=== PATIENT | male | born 1965 | race Caucasian/White ===

== ENCOUNTER 2020-11-13 11:58 | Outpatient (CLI) | payer OTHER, MEDICARE, SELFPAY ==
--- NOTE | 2020-11-13 12:13 | XR_ITS ---
WS: [id number] Thoracic spine, 3 views, 11/13/2020 Clinical Data: pain and injury Comparison: None. Findings: There are compression fractures of the T8 and T12 vertebral bodies with loss of approximately 50% of central vertebral body height. The age of these fractures is indeterminate. There is diffuse osteopor osis of all the thoracic vertebral bodies. There is a slight dextroscoliosis. Minimal anterior osteoa rthritic spurring is seen at T11-T12. The paravertebral regions are normal. XR/XR thoracic spine 3V* [id number] Impression: 1. Compression fractures of indeterminate age of T8 and T12. 2. Osteoporosis of all the thoracic vertebral bodies. 3. Dextroscoliosis of the lower thoracic spine.
== END 2020-11-13 11:59 | disposition home or self-care (01) ==
PROVIDERS: Visit Provider Nurse Practitioner
DX: S22.069A Unspecified fracture of T7-T8 vertebra, initial encounter for closed fracture (principal); S22.089A Unspecified fracture of T11-T12 vertebra, initial encounter for closed fracture; X58.XXXA Exposure to other specified factors, initial encounter; M81.0 Age-related osteoporosis without current pathological fracture; M41.84 Other forms of scoliosis, thoracic region
CPT/HCPCS: 72072

== ENCOUNTER 2025-04-22 09:39 | Oncology outpatient (recurring) (ONCR) | payer MEDICARE, MEDICAID, SELFPAY ==
--- NOTE | 2025-04-05 13:30 | PETR_ITS ---
PROCEDURE INFORMATION: Exam: PET/CT Skull Base to Mid-thigh Exam date and time: 04/05/2025 2:35 PM Age: 59 years old Clinical indication: Condition or disease; Primary cancer: Primary malignant neoplasm of overlapping sites of pancreas LABS AND CLINICAL REPORTS: Glucose: 93 mg/dl Treatment strategy for malignancy (PET staging): Initial Staging (PI) TECHNIQUE: Imaging protocol: Following at least four-hour fasting and following the injection of radiopharmaceutical, low dose CT images were obtained. Then, PET images were obtained. Attenuation corrected images were constructed using the CT scan. Fused images of PET and CT were reviewed. The standardized uptake values (SUV) reported below are maximum values within a region of interest, expressed in gm/ml. Exam includes orbital meatal line to mid-thigh. SUV normalization method: BodyWeight Radiopharmaceutical: 10.57 mCi F-18 FDG (Fluorodeoxyglucose), IV. Time of imaging post radiopharmaceutical administration: 50 minutes Injection site: left ac COMPARISON: CR XR thoracic spine 3V* [id number] 11/13/2020 12:16 PM FINDINGS: Tubes, catheters and devices: Right chest port terminates in the right atrium. Brain: Visualized brain has normal physiologic uptake. Pharynx: No abnormal uptake. Larynx: No abnormal uptake. Lungs, pleura and trachea: No abnormal uptake. Mild dependent atelectasis. No consolidation or mass. Heart: Normal physiologic uptake. Coronary arteries: Mild coronary artery calcification. Mediastinal space: No abnormal uptake. Liver: No abnormal uptake. Gallbladder and biliary ducts: Biliary stent in place with pneumobilia indicating patency. No biliary ductal dilatation. Low-level uptake at the distal hepatic aspect may be inflammatory related to recent placement. Pancreas: Focal uptake at the head shows SUV max 4.8 on axial image 157 without discretely measurable mass on noncontrast CT images. Atrophy of the neck, body and tail with ductal dilatation. Spleen: No abnormal uptake. 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 Adrenal glands: No abnormal uptake. Kidneys and ureters: Normal physiologic uptake. Stomach and bowel: FDG uptake along the thickened underdistended distal ascending colon as well as throughout the transverse colon. Urinary bladder: Underdistended urinary bladder with circumferential wall thickening. Reproductive: Prostatomegaly. No abnormal uptake. Vasculature: No abnormal uptake. Mild systemic atherosclerotic calcification without aortic aneurysm. Lymph nodes: Low-level FDG uptake at nonenlarged right level 2 cervical node measuring 5 mm in the short axis on axial image 31 with SUV max 2.9. Subcarinal node measures 1.3 cm in the short axis and shows SUV max 3.3. Low-level bilateral hilar uptake without discretely measurable node, SUV max 3.0 on the left on axial image 100 and SUV max 2.7 on the right on axial image 102. Mildly prominent FDG avid proximal peripancreatic/periportal lymphadenopathy with portacaval node measuring 1.3 cm in the short axis on axial image 150 with SUV max 3.1. Skeleton: No suspicious abnormal uptake in the visualized axial and appendicular skeleton. Chronic appearing [id number] anterior wedge morphology of the T8 and T12 vertebral bodies. Bilateral frontal bone and left periorbital postsurgical fixation hardware. Degenerative change along the spine. Thin FDG uptake adjacent to the left greater trochanter is likely inflammatory. Soft tissues: No abnormal uptake in the visualized head, neck, chest, abdomen, pelvis, and extremities. METRICS: Mediastinal blood pool: SUV mean 1.5 Liver uptake: SUV mean 1.8 PET/PET skull to thigh INIT [id number] IMPRESSION: 1. Focal FDG uptake at the pancreatic head likely corresponds to reported malignancy. Distal pancreatic atrophy and ductal dilatation. 2. FDG avid mildly prominent proximal peripancreatic/periportal lymphadenopathy concerning for metastatic disease. 3. Biliary stent in place with pneumobilia indicating patency. Low-level uptake at the distal hepatic aspect may be inflammatory related to recent placement. 4. Low-level FDG uptake at nonenlarged right cervical lymph node, subcarinal node and bilateral sonam is nonspecific with benign reactive or granulomatous etiology favored, metastasis thought less likely but difficult to entirely exclude. 5. FDG uptake along the distal ascending colon and throughout the transverse colon with underlying thickening. Although this could be physiologic in the setting of underdistention, possibility of colitis is raised. 6. Urinary bladder wall thickening may be on the basis of underdistention, possibly cystitis or chronic outlet obstruction in the setting of prostatomegaly. 7. Additional chronic and incidental findings as above.
[2025-04-15 07:46] LABS: Hematocrit 38.2 % (37-53); Hemoglobin 13.00 g/dL (11.27-16.99); Mean Corpuscular HGB Conc 34.0 g/dL (30-55); Mean Corpuscular Hemoglobin 34.1 pg (27-33); Mean Corpuscular Volume 100.3 fl (82-101); Nucleated Red Blood Cells % 0 %; Platelet Count 246 10^3/cmm (157-399); Red Blood Count 3.81 10^6/uL (3.85-5.65); White Blood Count 10.41 10^3/uL (3.29-11.43)
[2025-04-15 08:04] LABS: Alanine Aminotransferase 42 U/L (0-41); Albumin Level 3.9 g/dL (3.5-5.2); Alkaline Phosphatase 166 U/L (40-130); Anion Gap 16.3 (5-19); Aspartate Amino Transferase 43 U/L (0-40); Blood Urea Nitrogen 11 mg/dL (8-23); Calcium 9.0 mg/dL (8.5-10.5); Carbon Dioxide 25 mmol/L (22-29); Chloride 101 mmol/L (98-107); Creatinine Clr Calc Pharmacy 97.5424; Globulin 3.5 g/dL (1.3-4.6); Glucose 132 mg/dL (65-115); Osmolality Calculated 287 mOsm/kg (285-295); Potassium 4.3 mmol/L (3.5-5.1); Sodium 138 mmol/L (136-145); Total Protein 7.4 g/dL (6.6-8.7)
[2025-04-15] MEDS: dexamethasone 4 mg/mL INJ 5 mL 12 MG IVP (10:05)
[2025-04-15] MEDS: atropine 1 mg/mL SDV 1 mL 0.4 MG IV (13:06)
[2025-04-15] MEDS: LEUCOVORIN IV (13:19)
[2025-04-15] MEDS: IRINOTECAN IV (13:19)
[2025-04-15] MEDS: DEXTROSE 5% IV ×2 (13:19)
[2025-04-15] MEDS: fluorouraciL 50 mg/ml MDV 100 mL 650 MG IVP (15:17)
[2025-04-15] MEDS: fluorouraciL 4,050 MG, elastomeric pump 1 PUMP in sodium chloride 0.9% (100 ml) 11 ML IV (15:25)
[2025-04-15 15:38] VITALS: BP 102/67; PULSE 71; RESP 17; TEMP 36.3; O2SAT 91
[2025-04-22 09:53] LABS: Hematocrit 35.5 % (37-53); Hemoglobin 12.10 g/dL (11.27-16.99); Mean Corpuscular HGB Conc 34.1 g/dL (30-55); Mean Corpuscular Hemoglobin 33.2 pg (27-33); Mean Corpuscular Volume 97.5 fl (82-101); Nucleated Red Blood Cells % 0 %; Platelet Count 181 10^3/cmm (157-399); Red Blood Count 3.64 10^6/uL (3.85-5.65); White Blood Count 7.79 10^3/uL (3.29-11.43)
[2025-04-22 10:15] LABS: Albumin Level 3.9 g/dL (3.5-5.2); Alkaline Phosphatase 121 U/L (40-130); Anion Gap 14.1 (5-19); Aspartate Amino Transferase 22 U/L (0-40); Blood Urea Nitrogen 16 mg/dL (8-23); Calcium 8.9 mg/dL (8.5-10.5); Carbon Dioxide 27 mmol/L (22-29); Chloride 101 mmol/L (98-107); Creatinine Clr Calc Pharmacy 96.6891; Globulin 3.4 g/dL (1.3-4.6); Glucose 168 mg/dL (65-115); Osmolality Calculated 291 mOsm/kg (285-295); Potassium 4.1 mmol/L (3.5-5.1); Sodium 138 mmol/L (136-145); Total Protein 7.3 g/dL (6.6-8.7)
[2025-04-22 10:27] LABS: Alanine Aminotransferase 28 U/L (0-41)
== END 2025-04-23 23:59 | disposition home or self-care (01) ==
PROVIDERS: Internal Medicine Medical Oncology; Nurse Practitioner Family; Visit Provider Internal Medicine
DX: C25.9 Malignant neoplasm of pancreas, unspecified (principal); C77.2 Secondary and unspecified malignant neoplasm of intra-abdominal lymph nodes; F17.210 Nicotine dependence, cigarettes, uncomplicated; R39.198 Other difficulties with micturition; N32.89 Other specified disorders of bladder; R63.4 Abnormal weight loss; Z68.20 Body mass index [BMI] 20.0-20.9, adult; Z79.899 Other long term (current) drug therapy
CPT/HCPCS: 36591; 78815; 80053; 85025; 96368; 96375; 96411; 96413; 96415; 96416; 96417; 96523; 99205; 99214; 99215; A9552; J0461; J0640; J1100; J2469; J7060; J9190; J9206; J9263

== ENCOUNTER 2025-05-15 12:30 | Oncology outpatient (recurring) (ONCR) | payer MEDICARE, MEDICAID, SELFPAY ==
[2025-04-29 08:58] LABS: Hematocrit 38.6 % (37-53); Hemoglobin 13.00 g/dL (11.27-16.99); Mean Corpuscular HGB Conc 33.7 g/dL (30-55); Mean Corpuscular Hemoglobin 33.8 pg (27-33); Mean Corpuscular Volume 100.3 fl (82-101); Nucleated Red Blood Cells % 0 %; Platelet Count 238 10^3/cmm (157-399); Red Blood Count 3.85 10^6/uL (3.85-5.65); White Blood Count 6.18 10^3/uL (3.29-11.43)
[2025-04-29 09:31] LABS: Alanine Aminotransferase 15 U/L (0-41); Albumin Level 4.0 g/dL (3.5-5.2); Alkaline Phosphatase 121 U/L (40-130); Anion Gap 15.5 (5-19); Aspartate Amino Transferase 19 U/L (0-40); Blood Urea Nitrogen 14 mg/dL (8-23); Calcium 9.0 mg/dL (8.5-10.5); Cancer Antigen 19 9 123.3 U/mL (0-35); Carbon Dioxide 25 mmol/L (22-29); Chloride 101 mmol/L (98-107); Creatinine Clr Calc Pharmacy 96.9738; Globulin 3.5 g/dL (1.3-4.6); Glucose 94 mg/dL (65-115); Osmolality Calculated 284 mOsm/kg (285-295); Potassium 4.5 mmol/L (3.5-5.1); Sodium 137 mmol/L (136-145); Total Protein 7.5 g/dL (6.6-8.7)
[2025-04-29] MEDS: dexamethasone 4 mg/mL INJ 5 mL 12 MG IVP (10:13)
[2025-04-29] MEDS: atropine 1 mg/mL SDV 1 mL 0.4 MG IV (13:36)
[2025-04-29] MEDS: LEUCOVORIN IV (13:47)
[2025-04-29] MEDS: DEXTROSE 5% IV ×2 (13:47)
[2025-04-29] MEDS: IRINOTECAN IV (13:47)
[2025-04-29] MEDS: fluorouraciL 50 mg/ml MDV 100 mL 650 MG IVP (15:54)
[2025-04-29] MEDS: fluorouraciL 4,000 MG, elastomeric pump 1 PUMP in sodium chloride 0.9% (100 ml) 12 ML 2 MG IV (15:54)
[2025-04-29 15:58] VITALS: BP 109/71; PULSE 67; RESP 17; TEMP 36.4; O2SAT 96
[2025-05-13 09:19] LABS: Hematocrit 37.8 % (37-53); Hemoglobin 12.80 g/dL (11.27-16.99); Mean Corpuscular HGB Conc 33.9 g/dL (30-55); Mean Corpuscular Hemoglobin 33.5 pg (27-33); Mean Corpuscular Volume 99.0 fl (82-101); Nucleated Red Blood Cells % 0 %; Platelet Count 179 10^3/cmm (157-399); Red Blood Count 3.82 10^6/uL (3.85-5.65); White Blood Count 6.64 10^3/uL (3.29-11.43)
[2025-05-13 09:50] LABS: Alanine Aminotransferase 21 U/L (0-41); Albumin Level 3.9 g/dL (3.5-5.2); Alkaline Phosphatase 122 U/L (40-130); Anion Gap 12.4 (5-19); Aspartate Amino Transferase 24 U/L (0-40); Blood Urea Nitrogen 13 mg/dL (8-23); Calcium 8.8 mg/dL (8.5-10.5); Cancer Antigen 19 9 132.4 U/mL (0-35); Carbon Dioxide 26 mmol/L (22-29); Chloride 99 mmol/L (98-107); Creatinine Clr Calc Pharmacy 113.4681; Globulin 3.5 g/dL (1.3-4.6); Glucose 108 mg/dL (65-115); Osmolality Calculated 277 mOsm/kg (285-295); Potassium 4.4 mmol/L (3.5-5.1); Sodium 133 mmol/L (136-145); Total Protein 7.4 g/dL (6.6-8.7)
[2025-05-13] MEDS: dexamethasone 4 mg/mL INJ 5 mL 12 MG IVP (10:21)
[2025-05-13] MEDS: DEXTROSE 5% IV ×2 (11:14→13:45)
[2025-05-13] MEDS: LEUCOVORIN IV (11:14)
[2025-05-13] MEDS: atropine 1 mg/mL SDV 1 mL 0.4 MG IV (13:43)
[2025-05-13] MEDS: IRINOTECAN IV (13:45)
[2025-05-13] MEDS: fluorouraciL 4,000 MG, elastomeric pump 1 PUMP in sodium chloride 0.9% (100 ml) 12 ML 2 MG IV (15:20)
[2025-05-13] MEDS: fluorouraciL 50 mg/ml MDV 100 mL 650 MG IVP (15:20)
[2025-05-13 15:30] VITALS: BP 112/80; PULSE 80; RESP 16; TEMP 37.1; O2SAT 95
== END 2025-05-24 23:59 | disposition home or self-care (01) ==
PROVIDERS: Nurse Practitioner Family; Visit Provider Internal Medicine
DX: Z45.1 Encounter for adjustment and management of infusion pump (principal); Z95.828 Presence of other vascular implants and grafts
CPT/HCPCS: 80053; 85025; 86301; 96368; 96375; 96411; 96413; 96415; 96416; 96417; 96523; 99214; J0461; J0640; J1100; J2469; J7060; J9190; J9206; J9263

== ENCOUNTER 2025-06-17 07:46 | Oncology outpatient (recurring) (ONCR) | payer MEDICARE, MEDICAID, SELFPAY ==
[2025-05-27 08:15] LABS: Hematocrit 34.6 % (37-53); Hemoglobin 11.80 g/dL (11.27-16.99); Mean Corpuscular HGB Conc 34.1 g/dL (30-55); Mean Corpuscular Hemoglobin 34.1 pg (27-33); Mean Corpuscular Volume 100.0 fl (82-101); Nucleated Red Blood Cells % 0 %; Platelet Count 167 10^3/cmm (157-399); Red Blood Count 3.46 10^6/uL (3.85-5.65); White Blood Count 5.41 10^3/uL (3.29-11.43)
[2025-05-27 08:48] LABS: Alanine Aminotransferase 20 U/L (0-41); Albumin Level 3.8 g/dL (3.5-5.2); Alkaline Phosphatase 113 U/L (40-130); Anion Gap 11.7 (5-19); Aspartate Amino Transferase 36 U/L (0-40); Blood Urea Nitrogen 9 mg/dL (8-23); Calcium 8.3 mg/dL (8.5-10.5); Cancer Antigen 19 9 112.1 U/mL (0-35); Carbon Dioxide 25 mmol/L (22-29); Chloride 103 mmol/L (98-107); Globulin 3.4 g/dL (1.3-4.6); Glucose 107 mg/dL (65-115); Osmolality Calculated 281 mOsm/kg (285-295); Potassium 3.7 mmol/L (3.5-5.1); Sodium 136 mmol/L (136-145); Total Protein 7.2 g/dL (6.6-8.7)
[2025-06-03 08:24] LABS: Hematocrit 34.8 % (37-53); Hemoglobin 12.00 g/dL (11.27-16.99); Mean Corpuscular HGB Conc 34.5 g/dL (30-55); Mean Corpuscular Hemoglobin 33.3 pg (27-33); Mean Corpuscular Volume 96.7 fl (82-101); Nucleated Red Blood Cells % 0 %; Platelet Count 198 10^3/cmm (157-399); Red Blood Count 3.60 10^6/uL (3.85-5.65); White Blood Count 10.31 10^3/uL (3.29-11.43)
[2025-06-03 08:55] LABS: Alanine Aminotransferase 81 U/L (0-41); Albumin Level 3.5 g/dL (3.5-5.2); Alkaline Phosphatase 401 U/L (40-130); Anion Gap 13.6 (5-19); Aspartate Amino Transferase 57 U/L (0-40); Blood Urea Nitrogen 7 mg/dL (8-23); Calcium 8.6 mg/dL (8.5-10.5); Cancer Antigen 19 9 257.6 U/mL (0-35); Carbon Dioxide 24 mmol/L (22-29); Chloride 93 mmol/L (98-107); Globulin 4.1 g/dL (1.3-4.6); Glucose 103 mg/dL (65-115); Osmolality Calculated 262 mOsm/kg (285-295); Potassium 3.6 mmol/L (3.5-5.1); Sodium 127 mmol/L (136-145); Total Protein 7.6 g/dL (6.6-8.7)
[2025-06-17 08:16] LABS: Hematocrit 29.0 % (37-53); Hemoglobin 10.10 g/dL (11.27-16.99); Mean Corpuscular HGB Conc 34.8 g/dL (30-55); Mean Corpuscular Hemoglobin 34.8 pg (27-33); Mean Corpuscular Volume 100.0 fl (82-101); Nucleated Red Blood Cells % 0 %; Platelet Count 487 10^3/cmm (157-399); Red Blood Count 2.90 10^6/uL (3.85-5.65); White Blood Count 11.29 10^3/uL (3.29-11.43)
[2025-06-17 08:33] LABS: Slide Review Slide Review Perform
[2025-06-17 08:37] LABS: Alanine Aminotransferase 52 U/L (0-41); Albumin Level 3.2 g/dL (3.5-5.2); Alkaline Phosphatase 684 U/L (40-130); Anion Gap 11.2 (5-19); Aspartate Amino Transferase 52 U/L (0-40); Blood Urea Nitrogen 13 mg/dL (8-23); Calcium 8.5 mg/dL (8.5-10.5); Carbon Dioxide 25 mmol/L (22-29); Chloride 100 mmol/L (98-107); Globulin 4.4 g/dL (1.3-4.6); Glucose 148 mg/dL (65-115); Osmolality Calculated 277 mOsm/kg (285-295); Potassium 4.2 mmol/L (3.5-5.1); Sodium 132 mmol/L (136-145); Total Protein 7.6 g/dL (6.6-8.7)
[2025-06-17 08:58] LABS: Cancer Antigen 19 9 305.0 U/mL (0-35)
== END 2025-06-23 23:59 | disposition home or self-care (01) ==
PROVIDERS: Internal Medicine Medical Oncology; Nurse Practitioner; Visit Provider Internal Medicine
DX: C25.9 Malignant neoplasm of pancreas, unspecified; C77.2 Secondary and unspecified malignant neoplasm of intra-abdominal lymph nodes; R03.0 Elevated blood-pressure reading, without diagnosis of hypertension; Z79.631 Long term (current) use of antimetabolite agent; Z79.899 Other long term (current) drug therapy; Z53.9 Procedure and treatment not carried out, unspecified reason
CPT/HCPCS: 80053; 85025; 86301; 99213; 99214

== ENCOUNTER 2025-07-02 07:33 | Oncology outpatient (recurring) (ONCR) | payer MEDICARE, MEDICAID, SELFPAY ==
[2025-07-02 07:57] LABS: Hematocrit 35.4 % (37-53); Hemoglobin 11.90 g/dL (11.27-16.99); Mean Corpuscular HGB Conc 33.6 g/dL (30-55); Mean Corpuscular Hemoglobin 34.5 pg (27-33); Mean Corpuscular Volume 102.6 fl (82-101); Nucleated Red Blood Cells % 0 %; Platelet Count 261 10^3/cmm (157-399); Red Blood Count 3.45 10^6/uL (3.85-5.65); White Blood Count 7.72 10^3/uL (3.29-11.43)
[2025-07-02 08:13] LABS: Alanine Aminotransferase 29 U/L (0-41); Albumin Level 3.8 g/dL (3.5-5.2); Alkaline Phosphatase 293 U/L (40-130); Anion Gap 13.3 (5-19); Aspartate Amino Transferase 48 U/L (0-40); Blood Urea Nitrogen 10 mg/dL (8-23); Calcium 8.8 mg/dL (8.5-10.5); Carbon Dioxide 25 mmol/L (22-29); Chloride 103 mmol/L (98-107); Globulin 3.8 g/dL (1.3-4.6); Glucose 126 mg/dL (65-115); Osmolality Calculated 285 mOsm/kg (285-295); Potassium 4.3 mmol/L (3.5-5.1); Sodium 137 mmol/L (136-145); Total Protein 7.6 g/dL (6.6-8.7)
== END 2025-07-24 23:59 | disposition home or self-care (01) ==
PROVIDERS: Nurse Practitioner Family; Visit Provider Internal Medicine Medical Oncology
DX: C25.0 Malignant neoplasm of head of pancreas (principal); C77.2 Secondary and unspecified malignant neoplasm of intra-abdominal lymph nodes; F17.210 Nicotine dependence, cigarettes, uncomplicated; R03.0 Elevated blood-pressure reading, without diagnosis of hypertension; R74.01 Elevation of levels of liver transaminase levels; Z71.6 Tobacco abuse counseling
CPT/HCPCS: 80053; 85025; 99215